=== PATIENT | female | born 1970 | race Caucasian/White ===

== ENCOUNTER 2021-09-08 12:10 | Emergency (ER) | payer OTHER, SELFPAY ==
[2021-09-08 13:02] VITALS: BP 153/99; PULSE 60; RESP 18; TEMP 36.9; O2SAT 99; BMI 24.7
--- NOTE | 2021-09-08 13:07 | DI.RAD.S_ITS ---
PROCEDURE: XR SHOULDER RT MIN 2V INDICATIONS: Trauma, pain TECHNIQUE: 3 views of the shoulder were acquired. COMPARISON: None. FINDINGS: Bones: No fractures or dislocations. No suspicious bony lesions. Visualized ribs appear intact. Soft tissues: No suspicious soft tissue calcifications. IMPRESSION: Unremarkable right shoulder radiographs Approved by: Harry Jackson M.D. on 09/08/2021 at 14:09
--- NOTE | 2021-09-08 16:21 | ED_ITS ---
HPI - Extremity Injury (Upper) <PETRONA Kendrick - Last Filed: 09/08/21 16:56> General Chief Complaint: Extremity Injury, Upper Stated Complaint: right shoulder injury yesterday Time Seen by Provider: 09/08/21 13:48 Source: patient Mode of arrival: Family Vehicle History of Present Illness HPI narrative: 51-year-old female, daily smoker, that presents to the emergency department with complaints of right shoulder pain. 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 Patient endorses significant pain last night and was worse upon wakening this morning. Patient's attempted to manipulate the arm and while in the forward extension motion, felt and heard 2 pops. Patient is holding her shoulder in position of comfort. Patient denies any direct trauma to her shoulder or history of shoulder injury. Related Data Previous Rx's Medication Instructions Recorded methocarbamol 500 mg tablet 500 mg PO TID muscle spasm 4 days 09/08/21 #12 tabs oxycodone-acetaminophen 5 mg-325 1 tab PO Q6H PRN pain #10 tabs 09/08/21 mg tablet (Percocet) Allergies Allergy/AdvReac Type Severity Reaction Status Date / Time indomethacin [From Indocin] Allergy Rash Verified 09/08/21 13:02 Penicillins Allergy Rash Verified 09/08/21 13:02 Review of Systems <PETRONA Kendrick - Last Filed: 09/08/21 16:56> Review of Systems Narrative: Narrative: GENERAL: Denies chills, fatigue, fever, sweats. See HPI HEENT: Denies sinus pain, ear pain, sore throat, difficulty swallowing, dizziness. RESPIRATORY: Denies dyspnea, cough, wheezing, sputum. CARDIOVASCULAR: Denies chest pain, palpitations, edema. GASTROINTESTINAL: Denies nausea, vomiting, abdominal pain, diarrhea, constipation. : Denies dysuria, frequency, incontinence, hematuria, urinary retention, flank pain. MSK: Endorses right shoulder pain that worsens with movement. SKIN: Denies rash, skin lesions, or pruritis. NEUROLOGIC: Denies weakness, dizziness, headache, numbness, confusion. PSYCHIATRIC: No concerning psychosocial issues. Patient History <PETRONA Kendrick - Last Filed: 09/08/21 16:56> Social History Smoking Status: Current every day smoker Smoking Status: Current every day smoker tobacco type: cigarettes alcohol intake frequency: a few times a week Exam <PETRONA Kendrick - Last Filed: 09/08/21 16:56> Narrative Exam Narrative: Exam Narrative: GENERAL: This is a well-nourished, well-developed patient, in no acute distress HEAD: Atraumatic. Normocephalic. EYES: Pupils equal round and reactive. Extraocular motions intact. No scleral icterus, injection or drainage. ENT: Nose without bleeding, purulent drainage. Throat without erythema, tonsillar hypertrophy or exudate. Airway patent. NECK: Trachea midline. No JVD or lymphadenopathy. Nontender. CARDIOVASCULAR: Regular rate and rhythm without murmurs, peripheral pulses intact, cap refill <2 sec. RESPIRATORY: Breath sounds equal and clear bilaterally. No wheezes, rales, or rh onchi. No cough. No increased respiratory effort. No accessory muscle use. GASTROINTESTINAL: Abdomen soft, non-tender, nondistended without guarding or rebound. No suprapubic pain. MSK: Decreased range of motion of right shoulder due to pain. Neurovascularly intact. NEURO: A&O x 3. SKIN: Warm, dry, no rashes or lesions noted. Initial Vital Signs Initial Vital Signs: Vital Signs Temperature 98.4 F 09/08/21 13:02 Pulse Rate 60 09/08/21 13:02 Respiratory Rate 18 09/08/21 13:02 Blood Pressure 153/99 H 09/08/21 13:02 Pulse Oximetry 99 09/08/21 13:02 Oxygen Delivery Method 09/08/21 13:02 Reviewed Back/Spine/Pelvis Other: SHOULDER: There is no bruising, swelling or asymmetry. There is no tenderness to palpation over the AC joint, coracoid or glenoid processes. There is no soft tissue tenderness to palpation. Sensation grossly intact. Passive and active range of motion is severely limited due to pain. Range of motion of the elbow is normal. The contralateral shoulder exam is unremarkable. <Fidencio Brooks MD - Last Filed: 09/09/21 08:10> Initial Vital Signs Initial Vital Signs: Vital Signs Temperature 98.4 F 09/08/21 13:02 Pulse Rate 60 09/08/21 13:02 Respiratory Rate 18 09/08/21 13:02 Blood Pressure 153/99 H 09/08/21 13:02 Pulse Oximetry 99 09/08/21 13:02 Oxygen Delivery Method 09/08/21 13:02 Course <PETRONA Kendrick - Last Filed: 09/08/21 16:56> Orders Ordered: Discontinued Medications Ketorolac Tromethamine (Ketorolac 30 Mg/Ml Vial) 30 mg IM NOW ONE Stop: 09/08/21 16:18 Last Admin: 09/08/21 16:22 Dose: 30 mg Documented By: RL Vital Signs Vital signs: Vital Signs - 8 hr 09/08/21 13:02 09/08/21 16:33 Temperature 98.4 F Pulse Rate 60 105 H Respiratory Rate 18 18 Blood Pressure 153/99 H 143/84 H Pulse Oximetry 99 99 Oxygen Delivery Method Room Air Room Air <Fidencio Brooks MD - Last Filed: 09/09/21 08:10> Orders Ordered: Discontinued Medications Ketorolac Tromethamine (Ketorolac 30 Mg/Ml Vial) 30 mg IM NOW ONE Stop: 09/08/21 16:18 Last Admin: 09/08/21 16:22 Dose: 30 mg Documented By: RL Vital Signs Vital signs: Vital Signs - 8 hr 09/08/21 13:02 09/08/21 16:33 Temperature 98.4 F Pulse Rate 60 105 H Respiratory Rate 18 18 Blood Pressure 153/99 H 143/84 H Pulse Oximetry 99 99 Oxygen Delivery Method Room Air Room Air MDM - Extremity Injury (Upper) <PETRONA Kendrick - Last Filed: 09/08/21 16:56> Differential Diagnosis Differential diagnosis: Likely other (Right shoulder strain) Imaging Data Extremity x-ray #1: Radiologist's Impression: [address] [address] XRay Report Signed Patient: Amanda Rock MR#: [id number] : 1970 Acct:[id number] Age/Sex: 51 / F Date of Service: 09/08/21 Loc: ED Accession Number: [id number] ?? Procedure: XR shoulder RT min 2V Ordering Provider: Fidencio Brooks MD PROCEDURE:? XR SHOULDER RT MIN 2V ? INDICATIONS:? Trauma, pain ? TECHNIQUE:? 3 views of the shoulder were acquired.? ? COMPARISON:? None. ? FINDINGS:? ? Bones:? No fractures or dislocations.? No suspicious bony lesions.? Visualized ribs appear intact.? ? Soft tissues:? No suspicious soft tissue calcifications.? ? IMPRESSION:? Unremarkable right shoulder radiographs ? ? ? Approved by: Harry Jackson M.D. on 09/08/2021 at 14:09? MDM Narrative Medical decision making narrative: 51-year-old female with right shoulder strain secondary to lifting boxes at work. L and I paperwork completed. X-ray was negative. Pain was treated with ketorolac injection and sling. Discussed [id number]-rl-[id number] exercises to be done multiple times per day. We will treat with Robaxin and short course of pain medication. Instructed patient to obtain a PCP and follow-up next week. Discussed return precautions and plan of care with patient and spouse, who were agreeable with course of action. Discharge Plan Departure Patient Disposition: Home Clinical Impression: Right shoulder strain Instructions: DI for Shoulder Sprain Activity Restrictions/Additional Instructions: *You have been diagnosed with a right shoulder strain. Your x-ray was negative. As we discussed, we will place your right shoulder in a sling that you need to remove 5 times per day to conduct arm swings and wall crawls, as demonstrated. I am prescribing a muscle relaxer for you to take 3 times a day for the next 4 days. You may use the pain medication as needed to sleep or breakthrough pain. Your L and I paperwork was completed. Please call the below number to obtain a primary care provider, and make a follow-up appointment. If at any point you develop debilitating pain or need an extension of your L and I claim, please return to the emergency department. *What to do: *Please continue to take your regular medications as directed. [x ] New medication prescriptions sent to your pharmacy: [[facility] [place]] [ ] New medication written as a paper prescription [ ] No new medications given *Please follow up with your primary care provider in 2-3 days, call for an appointment. Let them know you were seen in the Emergency Department and that we ask that you be seen in follow up. We will electronically transmit a record of today's note if your PCP is in our system *If you do not have a primary care provider please contact the [facility] Resource line at [phone]. They will ask some questions about your medical history and help get you set up with a doctor in the community. ? Return to ER if you should have any new, worsening or concerning symptoms, domínguez ch as worsening pain, severe headache, confusion, chest pain, difficulty breathing, fever greater than 101 F, shaking chills, persistent vomiting to the point that you cannot drink fluids, or other new or worsening symptoms. Prescriptions: New methocarbamol 500 mg tablet 500 mg PO TID 4 Days Qty: 12 0RF oxycodone-acetaminophen [Percocet] 5-325 mg tablet 1 tab PO Q6H PRN (Reason: pain) Qty: 10 0RF Referrals: Miscellaneous,Doctor[facility] [Primary Care Provider] - Stand Alone Forms: Work Release Note Visit Report Forms: Patient Portal/API <Fidencio Brooks MD - Last Filed: 09/09/21 08:10> [facility] I was immediately available in the department for consultation. ?This documentation has been reviewed and I agree with assessment and plan. Supervised by Fidencio Brooks MD
[2021-09-08] MEDS: KETOROLAC 30 MG/ML VIAL IM (16:22)
[2021-09-08 16:33] VITALS: BP 143/84; PULSE 105; RESP 18; O2SAT 99
== END 2021-09-08 16:38 | disposition home or self-care (01) ==
PROVIDERS: Emergency Provider Registered Nurse
DX: S43.402A Unspecified sprain of left shoulder joint, initial encounter (principal); X50.0XXA Overexertion from strenuous movement or load, initial encounter; Y99.0 Civilian activity done for income or pay
CPT/HCPCS: 73030; 96372; 99283; J1885

== ENCOUNTER → 2024-09-23 09:01 | Outpatient (CLI) | payer OTHER, SELFPAY ==
--- NOTE | 2024-09-23 09:02 | DI.RAD.S_ITS ---
PROCEDURE: XR LUMBAR SPINE 2-3V INDICATIONS: prior reported injury, chronic pain TECHNIQUE: 3 views of the lumbar spine were acquired. COMPARISON: None. FINDINGS: Bones: 5 vnz-ihc-kxhntop vertebrae are present. There is normal bony alignment. No lumbar vertebral body compression fractures but there is a mild degree of superior endplate inferior curvature at the T11 vertebral body, potentially a sequela of prior trauma. No suspicious bony lesions. Slight disc height reduction at L5-S1. Soft tissues: Overlying bowel gas pattern is normal. No suspicious soft tissue calcifications. IMPRESSION: Possible old superior endplate mild impaction fracture at T11. Elsewhere along the low thoracic and lumbosacral spine no trauma is suspected. Mild L5-S1 degenerative disc height reduction without subluxation. Dictated by: Mir Jacobo M.D. on 09/23/2024 at 11:17 Approved by: Mir Jacobo M.D. on 09/23/2024 at 11:20
--- NOTE | 2024-09-23 09:02 | DI.RAD.S_ITS ---
PROCEDURE: XR SHOULDER RT MIN 2V INDICATIONS: prior reported injury, chronic pain TECHNIQUE: 3 views of the shoulder were acquired. COMPARISON: [facility], CR, XR SHOULDER RT MIN 2V, 09/08/2021, 13:24. FINDINGS: Bones: No fractures or dislocations. No suspicious bony lesions. Visualized ribs appear intact. Soft tissues: No suspicious soft tissue calcifications. IMPRESSION: No acute bony abnormality. Dictated by: Mir Jacobo M.D. on 09/23/2024 at 11:20 Approved by: Mir Jacobo M.D. on 09/23/2024 at 11:21
[2024-09-23 09:59] LABS: Add Manual Diff / Slide Review NO; Hematocrit 42.3 % (36-46); Hemoglobin 14.3 g/dL (12.0-16.0); Lymphocytes Absolute Auto 1500 /uL (1100-4500); Mean Corpuscular HGB Conc 33.7 % (30-36); Mean Corpuscular Hemoglobin 31.7 PG (26-34); Mean Corpuscular Volume 94.1 fL (80-100); Platelet Count 218 X10^3/uL (150-400)
[2024-09-23 10:10] LABS: Hemoglobin A1C% w Est Avg Glu 5.4 % (4.0-6.0)
[2024-09-23 10:26] LABS: Alanine Aminotransferase 88 IU/L (<35); Albumin 4.4 g/dL (3.5-5.0); Albumin Globulin Ratio 1.3 (1.0-2.8); Alkaline Phosphatase 106 U/L (38-126); Blood Urea Nitrogen 8 mg/dL (7-17); Calcium 9.6 mg/dL (8.4-10.2); Carbon Dioxide 31 mmol/L (22-32); Chloride 102 mmol/L (98-107); Cholesterol 210 mg/dL (140-199); Estimated Glomerular Filt Rate > 60 mL/min (>60); Globulin 3.4 g/dL (1.7-4.1); Glucose 110 mg/dL (70-99); HDL Cholesterol 61 mg/dL (40-60); HEMOLYSIS < 15 (0-50); Potassium 4.6 mmol/L (3.4-5.1); Sodium 139 mmol/L (137-145); Total Protein 7.8 g/dL (6.3-8.2); Triglycerides 293 mg/dL (35-150)
[2024-09-23 10:47] LABS: TSH w/ Reflex to FT4 2.20 uIU/mL (0.47-4.68)
== END ==
PROVIDERS: PCP Family Medicine; Referring Provider Family Medicine; Visit Provider Family Medicine
DX: Z00.00 Encounter for general adult medical examination without abnormal findings (principal); M51.379 Other intervertebral disc degeneration, lumbosacral region without mention of lumbar back pain or lower extremity pain; E78.5 Hyperlipidemia, unspecified; R03.0 Elevated blood-pressure reading, without diagnosis of hypertension; R07.89 Other chest pain; M54.50 Low back pain, unspecified; G89.29 Other chronic pain; F10.90 Alcohol use, unspecified, uncomplicated; Z68.35 Body mass index [BMI] 35.0-35.9, adult; Z87.39 Personal history of other diseases of the musculoskeletal system and connective tissue; Z72.0 Tobacco use; Z86.711 Personal history of pulmonary embolism
CPT/HCPCS: 36415; 72100; 73030; 80053; 80061; 83036; 84443; 85025

== ENCOUNTER → 2024-11-08 06:56 | Outpatient (CLI) | payer OTHER, SELFPAY ==
--- NOTE | 2024-11-08 06:57 | DI.CT.S_ITS ---
PROCEDURE: CT ANGIO CHEST PE PROTOCOL INDICATIONS: hx of prior PE - no follow-up imaging : new chest sxs TECHNIQUE: After the administration of intravenous contrast, 2 mm thick sections acquired from the pulmonary apices to the posterior costophrenic angles. 3-dimensional maximum intensity projection (MIP) coronal and sagittal reformats were then acquired through the thorax. For radiation dose reduction, the following was used: automated exposure control, adjustment of mA and/or kV according to patient size. COMPARISON: None. FINDINGS: Image quality: Diagnostic. Pulmonary arteries: Pulmonary arteries are normal in size, and demonstrate no intraluminal filling defects to suggest central pulmonary embolism. Lower Neck: No enlarged lymph nodes. Thyroid: Normal CT appearance. Axillae: No enlarged lymph nodes. Chest Wall: No suspicious chest wall mass. Bones: Unremarkable. Lungs and Pleura: Central airways are patent. Mild bilateral perihilar bronchial wall thickening and diffuse airway narrowing. Mild gravitational changes and right lateral upper lobe peripheral atelectasis. 5 mm subpleural left lower lobe solid nodule, 08/1564 and tiny pleural based wedge-shaped opacity 7/163. No other suspicious consolidations or masses. No pleural effusions. Heart: Heart size is normal. No pericardial effusion. Thoracic Vessels: No aortic aneurysm. Mediastinum and Annalisa: No focal bulky adenopathy. Mild confluent bilateral hilar soft tissue. Small left hilar calcification Esophagus: No wall thickening. No hiatal hernia. Upper Abdomen: Mild hepatic steatosis. Visible portions of upper abdominal organs are otherwise normal. IMPRESSION: No pulmonary embolus. Findings suggestive of mild bilateral bronchitis, infectious, inflammatory, reactive. 5 mm left lower lobe lung nodule. Follow-up in 6-12 months recommended. Dictated by: Trista Diaz M.D. on 11/08/2024 at 8:57 Approved by: Trista Diaz M.D. on 11/08/2024 at 9:04
--- NOTE | 2024-11-08 06:57 | DI.US.S_ITS ---
PROCEDURE: US ABDOMEN LIMITED INDICATIONS: elevated liver enzymes TECHNIQUE: Real-time scanning was performed of the abdominal and retroperitoneal organs, with image documentation. COMPARISON: None. FINDINGS: Liver: Increased liver echogenicity with posterior attenuation, most consistent with moderate to severe steatosis. Gallbladder: Absent. Biliary ducts: Intrahepatic bile ducts are non-dilated. Extrahepatic bile duct caliber measures 2 mm. Normal is 6-7 mm or less in diameter, or 10 mm or less post-cholecystectomy. Pancreas: Visualized portions of the pancreas are sonographically normal. Miscellaneous: No free abdominal fluid. IMPRESSION: Hepatic steatosis. In the absence of alcohol use or other confounding factors, elevated LFTs may indicate acaerfpwj-zogadzbyebe-ftqfmnsitz steatohepatitis (MASH). Dictated by: Moe Anne M.D. on 11/08/2024 at 11:47 Approved by: Moe Anne M.D. on 11/08/2024 at 11:48
--- NOTE | 2024-11-08 06:57 | DI.US.S_ITS ---
PROCEDURE: US ART LOW EXT LT W/VINICIUS INDICATIONS: (see below) TECHNIQUE: Color and pulse Doppler interrogation was performed of the left extremity arterial systems, with image documentation. VINICIUS was also performed. COMPARISON: None. FINDINGS: Left lower extremity: Common femoral artery: 107 cm/sec, with triphasic flow. Deep femoral artery: 61 cm/sec, with triphasic flow. Proximal superficial femoral artery: 89 cm/sec, with triphasic flow. Mid superficial femoral artery: 90 cm/sec, with triphasic flow. Distal superficial femoral artery: 71 cm/sec, with triphasic flow. Popliteal artery: 55-62 cm/sec, with triphasic flow. Posterior tibial artery: 30-58 cm/sec, with triphasic and biphasic flow. Anterior tibial artery/dorsalis pedis: 45-59 (CESARIO), 37 (DPA) cm/sec, with a biphasic/triphasic flow. Greer-scale imaging description: Minimal atherosclerotic disease. VINICIUS: 1.07 IMPRESSION: Patent left lower extremity vasculature, with normal waveforms. Normal VINICIUS of 1.07. Dictated by: Moe Anne M.D. on 11/08/2024 at 11:51 Approved by: Moe Anne M.D. on 11/08/2024 at 11:55
== END ==
LOC: CT 06:56
PROVIDERS: PCP Family Medicine; Referring Provider Family Medicine; Visit Provider Family Medicine
DX: K76.0 Fatty (change of) liver, not elsewhere classified (principal); R07.89 Other chest pain; R91.1 Solitary pulmonary nodule; R74.8 Abnormal levels of other serum enzymes; R21 Rash and other nonspecific skin eruption; F10.90 Alcohol use, unspecified, uncomplicated; Z79.01 Long term (current) use of anticoagulants; Z86.711 Personal history of pulmonary embolism; Z72.0 Tobacco use; Z90.49 Acquired absence of other specified parts of digestive tract
CPT/HCPCS: 71275; 76705; 93979; Q9967